=== PATIENT | female | born 1945 | race Caucasian/White ===

== ENCOUNTER 2020-06-26 10:21 | Outpatient (CLI) | payer MEDICARE ==
--- NOTE | 2020-06-29 12:40 | Mammography Report ---
BILATERAL DIGITAL DIAGNOSTIC MAMMOGRAM 3D/2D: 06/26/2020 CLINICAL: Pain. Comparison is made to exams dated: 04/06/2015 mammogram and 06/14/2016 mammogram - [facility]. The tissue of both breasts is heterogeneously dense. This may lower the sensi tivity of mammography. There are stable surgical clips in the left breast. No significant masses, calcifications, or other findings are seen in either breast. There has been no significant interval change. IMPRESSION: BENIGN No mammographic abnormality is seen corresponding to the reported chest wall pain. Clinical correlati on is recommended. There is no mammographic evidence of malignancy. A 1 year screening mammogram is recommended. This exam was interpreted at Station ID: [id number]. NOTE: For mammograms, a report in lay terms will be sent to the patient. Approximately 15% of breast malignancies will not be visualized mammographically. In the management of a palpable breast mass, a negative mammogram must not discourage biopsy of a clinically suspicious lesion. Electronically Signed By: Mike ann/cassandra:06/28/2020 17:43:45 ACR BI-RADS Category 2: Benign Finding(s) 3342F PARENCHYMAL PATTERN: (D) - The breast(s) demonstrate(s) heterogeneously dense fibroglandular jackson diaz. BI-RADS CATEGORY: (2) - 2 RECOMMENDATION: (ANNUAL) - Recommend routine annual screening mammography. [id number] 1 year screening LATERALITY: (B)
== END 2020-06-26 10:22 | disposition home or self-care (01) ==
LOC: EDBD → DI 10:21
PROVIDERS: ATTEND Registered Nurse
DX: N64.4 Mastodynia (principal)
CPT/HCPCS: 77066

== ENCOUNTER 2023-01-31 10:03 | Outpatient (CLI) | payer MEDICARE ==
--- NOTE | 2023-01-31 11:13 | XRAY Report ---
PROCEDURE: Chest 2 View X-Ray INDICATIONS: ABSENT BREATH SOUNDS TECHNIQUE: 2 views of the chest were acquired. COMPARISON: None. FINDINGS: Surgical changes and devices: None. Lungs and pleura: No pleural effusions or pneumothorax. Lungs are clear. Mediastinum: Mediastinal contours appear normal. Heart size is normal. Bones and chest wall: No suspicious bony lesions. Scoliosis. Overlying soft tissues appear unremarka ble. IMPRESSION: No acute cardiopulmonary process. Reviewed by: Mati Trinidad MD on 01/31/2023 11:12 AM PDT Approved by: Mati Trinidad MD on 01/31/2023 11:12 AM PDT Station ID: [id number]
== END 2023-01-31 10:04 | disposition home or self-care (01) ==
LOC: DI.S 10:03
PROVIDERS: ATTEND Registered Nurse
DX: R09.89 Other specified symptoms and signs involving the circulatory and respiratory systems (principal)

== ENCOUNTER 2024-05-29 10:03 | Outpatient (CLI) | payer MEDICARE ==
--- NOTE | 2024-05-30 07:56 | XRAY Report ---
PROCEDURE: Lumbar Spine 2-3V INDICATIONS: LOW BACK PAIN TECHNIQUE: AP and lateral views of lumbar spine COMPARISON: None. FINDINGS: Diffuse osseous demineralization, which severely limits the assessment of fractures and fracture acui ty. Lumbosacral transitional anatomy is present. 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 There is moderate dextrocurvature of the lumbar spine with the apex at L2. There may be a superior endplate compression fracture at L2 with 30-40% height loss. Confirmation is limited due to the dextrocurvature and osteopenia. Multilevel intervertebral disc height loss and facet arthropathy, most severe at L3-L4, L4-L5, and L5 -S1. Aortic vascular calcifications. Pelvic phleboliths. 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 IMPRESSION: Moderate dextrocurvature of the lumbar spine, superimposed on a possible L2 vertebral body compressio n fracture. MRI lumbar spine without contrast would be recommended for confirmation. Reviewed by: Tam Gates MD on 05/30/2024 7:55 AM PDT Approved by: Tam Gatse MD on 05/30/2024 7:55 AM PDT Station ID: [id number]
== END 2024-05-29 10:04 | disposition home or self-care (01) ==
LOC: DI.S 10:03
PROVIDERS: ATTEND Registered Nurse
DX: M48.56XA Collapsed vertebra, not elsewhere classified, lumbar region, initial encounter for fracture (principal); M41.9 Scoliosis, unspecified